=== PATIENT | female | born 1960 | race Caucasian/White ===

== ENCOUNTER 2021-08-24 09:37 | Outpatient (CLI) | payer OTHER, SELFPAY ==
--- NOTE | ~2021-08-24 | MM_ITS ---
EXAMINATION: MM screening mica BI w luis alfredo HISTORY: Screening TECHNIQUE: Craniocaudal and mediolateral oblique 3-D tomosynthesis images were obtained and synthetic 2-D images were generated. CAD analysis was submitted and interpreted. COMPARISON: Comparison to multiple prior studies sequentially, with oldest reviewed study dated 03/2015. BREAST PARENCHYMAL COMPOSITION: Breast composed of scattered areas of fibroglandular density FINDINGS: There is no evidence of suspicious mass, calcification, or architectural distortion to sugg est malignancy in either breast. There has been no suspicious interval change. IMPRESSION: 1. No mammographic evidence of malignancy. 2. Recommend routine screening mammography in one year. BI-RADS Category 1: Negative Reviewed, dictated and finalized at location A. LATE CHECKER
== END 2021-08-24 09:38 | disposition home or self-care (01) ==
LOC: ANHIMG 09:40
PROVIDERS: PCP Family Medicine; Visit Provider Obstetrics & Gynecology
DX: Z12.31 Encounter for screening mammogram for malignant neoplasm of breast (principal)
CPT/HCPCS: 77063; 77067

== ENCOUNTER 2023-09-20 09:13 | Outpatient (CLI) | payer OTHER, SELFPAY ==
--- NOTE | ~2023-09-20 | MM_ITS ---
EXAMINATION: MM screening mica BI w luis alfredo HISTORY: Screening TECHNIQUE: Craniocaudal and mediolateral oblique 3-D tomosynthesis images were obtained and synthetic 2-D images were generated. CAD analysis was submitted and interpreted. COMPARISON: Comparison to multiple prior studies sequentially, with oldest reviewed study dated 01/2017. BREAST PARENCHYMAL COMPOSITION: Not dense: There are scattered areas of fibroglandular density. FINDINGS: There is developing nodular asymmetries in the upper outer quadrant of the left breast. The right breast is stable without evidence for malignancy. IMPRESSION: 1. Developing nodular asymmetries of the left breast. 2. Additional mammographic views and possible breast ultrasound are recommended. BI-RADS Category 0: Incomplete: Needs additional imaging evaluation. Reviewed, dictated and finalized at location A. TRAY ASSEMBLER IMPRESSION: 1. Developing nodular asymmetries of the left breast. 2. Additional mammographic views and possible breast ultrasound are recommended . BI-RADS Category 0: Incomplete: Needs additional imaging evaluation.
== END 2023-09-20 09:14 | disposition home or self-care (01) ==
LOC: ANHIMG 09:16
PROVIDERS: PCP Family Medicine; Visit Provider Obstetrics & Gynecology
DX: Z12.31 Encounter for screening mammogram for malignant neoplasm of breast (principal); R92.8 Other abnormal and inconclusive findings on diagnostic imaging of breast
CPT/HCPCS: 77063; 77067

== ENCOUNTER 2023-10-03 12:57 | Outpatient (CLI) | payer OTHER, SELFPAY ==
--- NOTE | ~2023-10-03 | MMUS_ITS ---
EXAMINATION: MM diagnostic mica LT w luis alfredo, US breast LT limited HISTORY: Bleeding nodular asymmetries of left breast, upper outer quadrant TECHNIQUE: ML and spot MLO and CC 3-D tomosynthesis images of the left breast were performed and synt hetic 2-D images were generated. CAD analysis was submitted and interpreted. High resolution upper ou ter quadrant left breast ultrasound was performed. COMPARISON: September 20, 2023, August 24, 2021, August 07, 2019 bilateral screening mammogram exami [place] FINDINGS: MAMMOGRAPHIC FINDINGS: Approximately 12 matter mass is suggested in the upper outer quadrant left breast at mid depth. Additional masses are not excluded due to the heterogeneous stroma in the upper outer quadrant. ULTRASOUND: 1:00 4 cm from nipple: There is an irregular hypoechoic shadowing mass measuring 7 x 6 x 8 mm, with m ildly increased vascularity. Ultrasound-guided biopsy is recommended. IMPRESSION: 1. Suspicious irregular hypoechoic shadowing mass at 1:00 4 cm from nipple 2. Ultrasound-guided biopsy is recommended. BI-RADS category 4, suspicious findings. Dr. King telephoned the report and ultrasound-guided biopsy recommendation for left breast 1:[address] Jackson's triage nurse Monse on 10/03/2023 at 1455 hours. Reviewed, dictated and finalized at location A. IMPRESSION: 1. Suspicious irregular hypoechoic shadowing mass at 1:00 4 cm from nipple 2. Ultrasound-guided biopsy is recommended. BI-RADS category 4, suspicious findings. Dr. King telephoned the report and ultrasound-guided biopsy recommendation for left breast 1:[address] Jackson's triage nurse Monse on 10/03/2023 at 1455 h ours.
== END 2023-10-03 12:58 | disposition home or self-care (01) ==
PROVIDERS: PCP Family Medicine; Visit Provider Obstetrics & Gynecology
DX: R92.8 Other abnormal and inconclusive findings on diagnostic imaging of breast (principal)
CPT/HCPCS: 76642; 77061; 77065; G0279